=== PATIENT | female | born 2000 | race Caucasian/White ===

== ENCOUNTER 2024-03-27 19:41 | Emergency (ER) | payer SELFPAY ==
--- OUTSIDE RECORDS SUMMARY | 2024-03-27 19:45 | XMS REPORT | Continuity of Care Document ---
Author Name Unknown Address [address] [facility] [address] [place] [address] [facility] thconnect Address [address] [facility] [address] [place] [address] Care Team Providers Care Library Helper Name Role Phone Zaida_Jelani Attending Clinician Unavailable RACHNA Attending Clinician Unavailable Goldie Copeland Attending Clinician [phone] L_Jelani Admitting Clinician Unavailable RACHNA Admitting Clinician Unavailable Payers Payer Name Policy Type Policy Number Effective Date Expirati on Date Source [place] [id number] 2022 00:00:00 2023 00:00:00 Problems Condition Name Condition Details Condition Category Status Onset Date Resolution Date Last Treatment Date Treating Clinician Comments Source Acute sinusitis Acute Sinusitis Problem Active 7-30 00:00: 00 [facility] COVID-19 Covid-19 Problem Active 2022-04 2-05 00:00: 00 [facility] Acute tonsilliti s Acute Tonsilliti s Problem Active 2022-04 1-02 00:00: 00 [facility] Elevated blood-pres sure reading without diagnosis of hypertensi on Elevated Blood-pres sure Reading without Diagnosis of Hypertensi on Problem Active 2022-04 0-13 00:00: 00 [facility] Streptococ pacheco sore throat Streptococ pacheco Sore Throat Problem Active 3-10 00:00: 00 [facility] Pain in throat Pain in Throat Problem Active 3-10 00:00: 00 [facility] Rhinitis Rhinitis Problem Active 3-10 00:00: 00 [facility] Diarrhea Diarrhea Problem Active 3-10 00:00: 00 [facility] Anxiety Anxiety Problem Active 06-18 00:00: 00 [facility] Depressive disorder Depressive Disorder Problem Active 06-18 00:00: 00 [facility] Endometrio sis (clinical) Endometrio sis (Clinical) Problem Active 06-18 00:00: 00 [facility] Allergies, Adverse Reactions, Alerts Allergy Name Allergy Type Status Severity Reaction(s) Onset Date Inactive Date Treating Clinician Comments Source Amoxicil regina Allergy to substanc e Active [facility] Social History Smoking Status Start Date Stop Date Source Never Smoker [facility] Medications Ordered Medication Name Filled Medication Name Start Date Stop Date Current Medication? Ordering Clinician Indication Dosage Frequency Signature (SIG) Comments Components Source doxycycline hyclate 100 mg capsule Take 1 capsule twice a day by oral route for 7 days. doxycycline hyclate 100 mg capsule Take 1 capsule twice a day by oral route for 7 days. No 1capsul e(s) BID doxycyclin e hyclate 100 mg capsule Take 1 capsule twice a day by oral route for 7 days. [facility] fluticasone propionate 50 mcg/actuati on nasal spray,suspe nsion 1 spray to each nostril twice daily as needed for nasal congestion. fluticasone propionate 50 mcg/actuati on nasal spray,suspe nsion 1 spray to each nostril twice daily as needed for nasal congestion. No fluticason e propionate 50 mcg/actuat ion nasal spray,susp ension 1 spray to each nostril twice daily as needed for nasal congestion . [facility] Immunizations Ordered Immunization Name Filled Immunization Name Date Status Comments Source COVID-19, mRNA, LNP-S, PF, 100 mcg/0.5 mL dose (Moderna) COVID-19, mRNA, LNP-S, PF, 100 mcg/0.5 mL dose (Moderna) Unknown Completed [facility] Vital Signs Vital Name Observation Time Observation Value Comments S ource BP Diastolic 2024-02-22 00:00:00 94 mm[Hg] [facility] BP Systolic 2024-02-22 00:00:00 152 mm[Hg] [facility] Height 2024-02-22 00:00:00 63 [in_i] [facility] BMI (Body Mass Index) 2024-02-22 00:00:00 43.7 kg/m2 [facility] Body Weight 2024-02-22 00:00:00 3945.6 [oz_av] [facility] Height 2023-12-28 00:00:00 63 [in_i] [facility] BMI (Body Mass Index) 2023-12-28 00:00:00 44.9 kg/m2 [facility] Body Weight 2023-12-28 00:00:00 4054.4 [oz_av] [facility] BP Diastolic 2023-12-28 00:00:00 83 mm[Hg] [facility] BP Systolic 2023-12-28 00:00:00 139 mm[Hg] [facility] BMI (Body Mass Index) 2023-11-21 00:00:00 45.5 kg/m2 [facility] Body Weight 2023-11-21 00:00:00 4112 [oz_av] [facility] Height 2023-11-21 00:00:00 63 [in_i] [facility] BP Diastolic 2023-11-21 00:00:00 96 mm[Hg] [facility] BP Systolic 2023-11-21 00:00:00 149 mm[Hg] [facility] BP Systolic 2023-06-01 00:00:00 127 mm[Hg] [facility] Height 2023-06-01 00:00:00 63 [in_i] [facility] BMI (Body Mass Index) 2023-06-01 00:00:00 43.1 kg/m2 [facility] BP Diastolic 2023-06-01 00:00:00 81 mm[Hg] [facility] Body Weight 2023-06-01 00:00:00 3891.2 [oz_av] [facility] BMI (Body Mass Index) 2023-04-19 00:00:00 43.2 kg/m2 [facility] Body Weight 2023-04-19 00:00:00 3904 [oz_av] [facility] BP Diastolic 2023-04-19 00:00:00 92 mm[Hg] [facility] BP Systolic 2023-04-19 00:00:00 133 mm[Hg] [facility] Height 2023-04-19 00:00:00 63 [in_i] [facility] BP Diastolic 2023-03-28 00:00:00 91 mm[Hg] [facility] Body Weight 2023-03-28 00:00:00 3907.2 [oz_av] [facility] Height 2023-03-28 00:00:00 63 [in_i] [facility] BMI (Body Mass Index) 2023-03-28 00:00:00 43.3 kg/m2 [facility] BP Systolic 2023-03-28 00:00:00 137 mm[Hg] [facility] BP Diastolic 2023-02-23 00:00:00 87 mm[Hg] [facility] BMI (Body Mass Index) 2023-02-23 00:00:00 43.5 kg/m2 [facility] Height 2023-02-23 00:00:00 63 [in_i] [facility] BP Systolic 2023-02-23 00:00:00 138 mm[Hg] [facility] Body Weight 2023-02-23 00:00:00 3932.8 [oz_av] [facility] BP Diastolic 2023-02-03 00:00:00 91 mm[Hg] [facility] BMI (Body Mass Index) 2023-02-03 00:00:00 43.8 kg/m2 [facility] BP Systolic 2023-02-03 00:00:00 142 mm[Hg] [facility] Body Weight 2023-02-03 00:00:00 3955.2 [oz_av] [facility] 2023-02-03 00:00:00 63 [in_i] [facility] BP Systolic 2022-11-25 00:00:00 146 mm[Hg] [facility] Body Weight 2022-11-25 00:00:00 3913.6 [oz_av] [facility] BP Diastolic 2022-11-25 00:00:00 99 mm[Hg] [facility] Height 2022-11-25 00:00:00 63 [in_i] [facility] BMI (Body Mass Index) 2022-11-25 00:00:00 43.3 kg/m2 [facility] BP Diastolic 2022-07-01 00:00:00 93 mm[Hg] [facility] Height 2022-07-01 00:00:00 63 [in_i] [facility] BMI (Body Mass Index) 2022-07-01 00:00:00 43 kg/m2 [facility] BP Systolic 2022-07-01 00:00:00 137 mm[Hg] [facility] Body Weight 2022-07-01 00:00:00 3888 [oz_av] [facility] BP Diastolic 2021-06-18 00:00:00 89 mm[Hg] [facility] Height 2021-06-18 00:00:00 63 [in_i] [facility] BMI (Body Mass Index) 2021-06-18 00:00:00 42.9 kg/m2 [facility] BP Systolic 2021-06-18 00:00:00 136 mm[Hg] [facility] Body Weight 2021-06-18 00:00:00 3872 [oz_av] [facility] Procedures Procedure Date / Time Performed Performing Clinicia n Source XR, lumbosacral spine, 2 or 3 view 2023-06-01 00:00:00 [facility] XR, shoulder, 2 or more view 2023-02-03 00:00:00 [facility] XR, neck, soft tissue 2022-11-25 00:00:00 [facility] Encounters Start Date/Time End Date/Time Encounter Type Admission Type Attending [facility] Care Facility Care Department Encounter ID Source 2024-02-22 00:00:00 2024-02-22 00:00:00 Amaya Palomares APRN, MSN, [facility]-: [address], [address], [place] [address] , Ph. [facility] [address] [facility] 2023-12-28 00:00:00 2023-12-28 00:00:00 Amaya Palomares APRN, MSN, [facility]-: [address], [address], [place] [address] , Ph. [facility] 0905 [facility] 2023-11-21 00:00:00 2023-11-21 00:00:00 Tayler Riggs APRN-SNUFF CONTAINER INSPECTOR-B C: [address], [address], [place] [address] , Ph. [facility] 0730 [facility] 2023-06-23 00:00:00 2023-06-23 00:00:00 Outpatient [facility] [id number] [facility] 2023-06-01 00:00:00 2023-06-01 00:00:00 Outpatient L[facility] [id number] [facility] 2023-06-01 00:00:00 2023-06-01 00:00:00 Amaya Palomares APRN, MSN, [facility]-BC: [address], [address], [place] [address] , Ph. [facility] [id number] [facility] 2023-05-30 00:00:00 2023-05-30 00:00:00 Outpatient L[facility] [id number] [facility] 2023 00:00:00 2023 00:00:00 Outpatient [facility] [id number] [facility] 2023-04-19 00:00:00 2023-04-19 00:00:00 Amaya Palomares APRN, MSN, SNUFF CONTAINER INSPECTOR-BC: [address] [place] [address], [address], [place] [address] , Ph. [facility] [id number] [facility] 2023-04-13 00:00:00 2023-04-13 00:00:00 Outpatient L[facility]ena [facility] [id number] [facility] 2023-03-28 00:00:00 2023-03-28 00:00:00 Tayler Riggs APRN-SNUFF CONTAINER INSPECTOR-B C: [address] [place] [address], [address] [place] [address] , Ph. [facility] [id number] [facility] 2023-03-11 00:00:00 2023-03-11 00:00:00 Outpatient L[facility]ena [facility] [id number] [facility] 2023-03-09 00:00:00 2023-03-09 00:00:00 Outpatient L[facility]ena [facility] [id number] [facility] 2023-02-23 00:00:00 2023-02-23 00:00:00 Tayler Riggs APRN-SNUFF CONTAINER INSPECTOR-B C: [address] [facility], [address] [place] [phone] , Ph. [facility] [id number] [facility] 2023-02-21 00:00:00 2023-02-21 00:00:00 Outpatient L[facility] [id number] [facility] 2023-02-21 00:00:00 2023-02-21 00:00:00 Outpatient L[facility] [id number] [facility] 2023-02-03 00:00:00 2023-02-03 00:00:00 Outpatient L[facility]ena [facility] [id number] [facility] 2023-02-03 00:00:00 2023-02-03 00:00:00 Amaya Palomares APRN, MSN, [facility]-: [address] [place] [address], [address] [address] , Ph. [facility] [id number] [facility] 2023-01-20 00:00:00 2023-01-20 00:00:00 Outpatient L[facility] [id number] [facility] 2022-12-16 00:00:00 2022-12-16 00:00:00 Outpatient L[facility] [id number] [facility] 2022-11-25 00:00:00 2022-11-25 00:00:00 Outpatient L[facility] [id number] [facility] 2022-11-25 00:00:00 2022-11-25 00:00:00 Amaya Palomares APRN, MSN, SNUFF CONTAINER INSPECTOR-BC: [address] [place] [address], [address] [address] , Ph. [facility] [id number] [facility] 2022-10-28 00:00:00 2022-10-28 00:00:00 Outpatient L[facility]ena [facility] [id number] [facility] 2022-10-28 00:00:00 2022-10-28 00:00:00 Outpatient L[facility]ena [facility] [id number] [facility] 2022-09-23 00:00:00 2022-09-23 00:00:00 Outpatient L[facility]ena [facility] [id number] [facility] 2022-08-19 00:00:00 2022-08-19 00:00:00 Outpatient L[facility]ena [facility] [id number] [facility] 2022-07-15 00:00:00 2022-07-15 00:00:00 Outpatient L[facility]ena [facility] [id number] [facility] 2022-07-01 00:00:00 2022-07-01 00:00:00 Outpatient L[facility]ena [facility] [id number] [facility] 2022-07-01 00:00:00 2022-07-01 00:00:00 Outpatient L[facility]ena [facility] [id number] [facility] 2022-07-01 00:00:00 2022-07-01 00:00:00 Amaya Palomares APRN, MSN, [facility]-: [address] [place] [address], [address] [address] , Ph. [facility] [id number] [facility] 2022-06-30 00:00:00 2022-06-30 00:00:00 Outpatient L[facility]ena [facility] [id number] [facility] 2021-06-18 01:10:00 2021-06-18 01:10:00 Outpatient WATERS_S [facility] [id number] [facility] 2021-06-18 00:00:00 2021-06-18 00:00:00 Outpatient Goldie Copeland [facility] [id number] 2021-06-18 00:00:00 2021-06-18 00:00:00 Goldie Copeland BODY SERVICE TEAM MEMBER-TARGET SETTER-C: [address], [address], [place] [address] , Ph. [facility] [id number] [facility] 2021-06-15 04:23:00 2021-06-15 04:23:00 Outpatient WATERS_S [facility] [id number] [facility] Results Test Description Test Time Test Comments Results Result Co mments Source [facility] Ag [Presence] in Respiratory system specimen by Rapid [id number] 15:21:00* Test Item Value Reference Range Interpretation Comme nts SARS CoV 2 (test code = SARS CoV 2) negative [facility]
[2024-03-27] MEDS ORDERED: IBUPROFEN 200 MG TAB PO ONE (20:04)
[2024-03-27 20:43] LABS: SARS-CoV-2 Antigen CONTROL BLUE LINE VIS/BG OK
[2024-03-27 20:44] LABS: SARS-CoV-2 Antigen Rapid Res Positive (Negative)
--- NOTE | 2024-03-27 21:09 | EDPHYS ---
Physician Documentation [facility] Name: Lorna Gomez Age: 23 yrs Sex: Female : 2000 Arrival Date: 03/27/2024 Time: 19:41 Bed 6 Private MD: ED Physician Elier Alicea HPI: 03/27 19:54 This 23 yrs old Female presents to ER via Unassigned with complaints of Cough, kb Congestion, Fever, Headache. 19:54 Pt is a 23 year old female who presents for cough, congestion, fever, and headache that kb started yesterday. 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 Denies vomiting, diarrhea. Significant other just started having same symptoms. . PEDODONTIST: 20:00 LMP 02/2024, unknown lg3 Historical: - Allergies: 20:00 Amoxicillin; lg3 - Home Meds: 20:00 None [Active]; lg3 - PMHx: 20:00 None; lg3 - PSHx: 20:00 None; lg3 - Immunization history:: Adult Immunizations up to date. - Infectious Disease History:: Denies. - Social history:: Smoking status: Reported history of juuling and/or vaping. Patient/guardian denies using alcohol, street drugs. ROS: 19:55 Constitutional: As per HPI kb Exam: 19:55 Constitutional: This is a well developed, well nourished patient who is awake, alert, kb and in no acute distress. Head/Face: Normocephalic, atraumatic. ENT: Moist Mucous membranes Cardiovascular: Regular rate Respiratory: Respirations even and unlabored. No increased work of breathing. Talking in full sentences Skin: Warm, dry with normal turgor. Normal color. MS/ Extremity: Pulses equal, no cyanosis. Neurovascular intact. Full, normal range of motion. Neuro: Awake and alert, GCS 15, oriented to person, place, time, and situation. Vital Signs: 19:57 BP 133 / 79; Pulse 134; Resp 15 S; Temp 101.9(O); Pulse Ox 97% on R/A; Weight 113.4 kg lg3 (R); Height 5 ft. 3 in. (R); 20:43 BP 148 / 83; Pulse 112; Resp 20 S; Temp 103.1; Pulse Ox 97% on R/A; ay 21:12 BP 132 / 63; Pulse 115; Resp 18; Temp 101.1(O); Pulse Ox 98% on R/A; ha1 21:31 BP 132 / 65; Pulse 102; Resp 20 S; Temp 100.1(T); Pulse Ox 99% on R/A; ha1 19:57 Body Mass Index 44.29 (113.40 kg, 160.02 cm) lg3 [place] Coma Score: 20:43 Eye Response: spontaneous(4). Motor Response: obeys commands(6). Verbal Response: ay oriented(5). Total: 15. MDM: 19:46 Medical Screening Exam initiated kb 21:08 Differential Diagnosis: Other flu, covid, strep, uri. Data reviewed: vital signs, kb nurses notes. I considered the following discharge prescriptions or medication management in the emergency department I discussed and recommended Over The Counter medications, Antibiotics: At this time antibiotics are not recommended, Antivirals: At this time, antivirals are not recommended. Historians other than the Patient: Spouse/Significant Other: significant other. Counseling: I had a detailed discussion with the patient and/or guardian regarding the historical points, exam findings, and any diagnostic results supporting the discharge/admit diagnosis, lab results, the need for outpatient follow up, a family practitioner, to return to the emergency department if symptoms worsen or persist or if there are any questions or concerns that arise at home. 03/27 19:55 Order name: Flu; Complete Time: 20:55 kb 03/27 19:55 Order name: SARS-COV-2 Antigen Rapid; Complete Time: 20:55 kb 03/27 19:55 Order name: Strep; Complete Time: 20:55 kb 03/27 19:55 Order name: RSV; Complete Time: 20:55 kb 03/27 20:47 Order name: Throat Culture EDMS 03/27 21:08 Order name: Vital Signs; Complete Time: 21:12 kb Administered Medications: 20:09 Drug: Ibuprofen PO 600 mg PO once Route: PO; ay 20:29 Follow up: Response: No adverse reaction ay 21:32 Follow up: Response: No adverse reaction; Temperature is decreased ha1 21:05 Drug: Acetaminophen PO 1000 mg PO once Route: PO; ha1 21:32 Follow up: Response: No adverse reaction; Temperature is decreased ha1 Disposition Summary: 03/27/24 21:09 Discharge Ordered Notes: Location: Home kb Condition: Stable kb Diagnosis - SARS-associated coronavirus as the cause of diseases classified elsewhere kb - Influenza due to identified novel influenza A virus kb Followup: kb - With: Emergency Department - When: As needed - Reason: Worsening of condition Followup: kb - With: Private Physician - When: 2 - 3 days - Reason: Recheck today's complaints, Continuance of care, Re-evaluation by your physician Discharge Instructions: - Discharge Summary Sheet kb - Influenza, Adult, [id number] kb - COVID-19 kb - Viral Illness, Adult kb Forms: - Work release form kb - Medication Reconciliation Form kb - Antibiotic Education kb - Prescription Opioid Use kb - Patient Portal Instructions kb - Leadership Thank You Letter kb Signatures: Dispatcher [employer] EDMS Rachel Mejia, DENSITY CONTROL PUNCHER-C DENSITY CONTROL PUNCHER-Monse Castle RN RN lg3 Sadia Jaramillo, RN RN ha1 Edgar Sanchez RN RN ay Corrections: (The following items were deleted from the chart) 19:55 19:55 Influenza Screen (A \T\ B)+BA.LAB.BRZ ordered. EDMS EDMS 19:55 19:55 SARS-COV-2 Antigen Rapid+I.LAB.BRZ ordered. EDMS EDMS 19:55 19:55 Group A Streptococcus Rapid Sc+BA.LAB.BRZ ordered. EDMS EDMS 19:55 19:55 Respiratory Syncytial Virus Ag+BA.LAB.BRZ ordered. EDMS EDMS
--- NOTE | 2024-03-27 21:09 | ER ---
Nurse's Notes [facility] Name: Lorna Gomez Age: 23 yrs Sex: Female : 2000 Arrival Date: 03/27/2024 Time: 19:41 Bed 6 Private MD: Diagnosis: SARS-associated coronavirus as the cause of diseases classified elsewhere;Influenza due to identified novel influenza A virus Presentation: 03/27 19:57 Chief complaint: Patient states: cough, congestion, fever, headache since yesterday. lg3 Coronavirus screen: Client denies travel out of the [place] in the last 14 days. Client presents with at least one sign or symptom that may indicate coronavirus-19. Standard/surgical mask placed on the client. Ebola Screen: No symptoms or risks identified at this time. Initial Sepsis Screen: Does the patient meet any 2 criteria? Temp <36.0*C (96.8*F)) or > 38.3*C (100.9*F). HR > 90 bpm. Yes Does the patient have a suspected source of infection? No. Patient's initial sepsis screen is negative. Risk Assessment: Do you want to hurt yourself or someone else? Patient reports no desire to harm self or others. Onset of symptoms was March 26, 2024. 19:57 Method Of Arrival: Ambulatory lg3 19:57 Acuity: ORLIN 3 lg3 Triage Assessment: 20:00 General: Appears in no apparent distress. comfortable, Behavior is calm, cooperative, lg3 quiet. Pain: Complains of pain in head. EENT: No deficits noted. Reports nasal congestion nasal discharge. Neuro: No deficits noted. [place] Agitation-Sedation Scale (RASS): 0 - Alert and Calm Level of Consciousness is awake, alert, obeys commands, Oriented to person, place, time, situation. Cardiovascular: No deficits noted. Denies chest pain, shortness of breath, Capillary refill < 3 seconds Clubbing of nail beds is absent JVD is absent Patient's skin is warm and dry. Respiratory: No deficits noted. Reports cough that is pain with cough Airway is patent Respiratory effort is even, unlabored, Respiratory pattern is regular, symmetrical, Breath sounds are clear bilaterally. GI: No deficits noted. No signs and/or symptoms were reported involving the gastrointestinal system. : No signs and/or symptoms were reported regarding the genitourinary system. Derm: No deficits noted. No signs and/or symptoms reported regarding the dermatologic system. Skin is intact, is healthy with good turgor, Skin is dry, Skin is normal, Skin temperature is warm. Musculoskeletal: No deficits noted. No signs and/or symptoms reported regarding the musculoskeletal system. Circulation, motion, and sensation intact. Range of motion: intact in all extremities. ASSESSMENT RN: 20:00 LMP 02/2024, unknown lg3 Historical: - Allergies: 20:00 Amoxicillin; lg3 - Home Meds: 20:00 None [Active]; lg3 - PMHx: 20:00 None; lg3 - PSHx: 20:00 None; lg3 - Immunization history:: Adult Immunizations up to date. - Infectious Disease History:: Denies. - Social history:: Smoking status: Reported history of juuling and/or vaping. Patient/guardian denies using alcohol, street drugs. Screenin:43 [facility] ED Fall Risk Assessment (Adult) History of falling in the last 3 months, ay including since admission No falls in past 3 months (0 pts) Confusion or Disorientation No (0 pts) Intoxicated or Sedated No (0 pts) Impaired Gait No (0 pts) Mobility Assist Device Used No (0 pt) Altered Elimination No (0 pt) Score/Fall Risk Level 0 - 2 = Low Risk Oriented to surroundings, Maintained a safe environment, Educated pt \T\ family on fall prevention, incl call for assistance when getting out of bed. Abuse screen: Denies threats or abuse. Nutritional screening: No deficits noted. Tuberculosis screening: No symptoms or risk factors identified. Assessment: 20:30 General: Appears uncomfortable, Behavior is calm, cooperative. Pain: Complains of pain ay in head Pain currently is 9 out of 10 on a pain scale. 20:43 Neuro: Level of Consciousness is awake, alert, obeys commands, Oriented to person, ay place, time, situation, Speech is normal, Cardiovascular: Heart tones S1 S2 Capillary refill < 3 seconds Chest pain is denied. Respiratory: Airway is patent Respiratory effort is even, unlabored, Respiratory pattern is regular, symmetrical. GI: Abdomen is distended, obese, Bowel sounds present X 4 quads. Abd is soft and non tender X 4 quads. : No signs and/or symptoms were reported regarding the genitourinary system. EENT: Nares stuffy. Derm: No signs and/or symptoms reported regarding the dermatologic system. Musculoskeletal: No signs and/or symptoms reported regarding the musculoskeletal system. Vital Signs: 19:57 BP 133 / 79; Pulse 134; Resp 15 S; Temp 101.9(O); Pulse Ox 97% on R/A; Weight 113.4 kg lg3 (R); Height 5 ft. 3 in. (R); 20:43 BP 148 / 83; Pulse 112; Resp 20 S; Temp 103.1; Pulse Ox 97% on R/A; ay 21:12 BP 132 / 63; Pulse 115; Resp 18; Temp 101.1(O); Pulse Ox 98% on R/A; ha1 21:31 BP 132 / 65; Pulse 102; Resp 20 S; Temp 100.1(T); Pulse Ox 99% on R/A; ha1 19:57 Body Mass Index 44.29 (113.40 kg, 160.02 cm) lg3 Vitals: 20:43 Cardiac Rhythm Assessment Regular. ay Dana Coma Score: 20:43 Eye Response: spontaneous(4). Motor Response: obeys commands(6). Verbal Response: ay oriented(5). Total: 15. ED Course: 19:45 Patient arrived in ED. gm2 19:46 Rachel Mejia [facility]NP-C [facility]. kb 19:46 Elier Alicea MD is Attending Physician. kb 20:00 Triage completed. lg3 20:00 Arm band placed on right wrist. lg3 20:43 Patient has correct armband on for positive identification. Bed in low position. Call ay light in reach. Side rails up X2. Adult w/ patient. Provided Education on: Procedure Consent. 20:43 No provider procedures requiring assistance completed. ay 21:33 Patient did not have IV access during this emergency room visit. ha1 Administered Medications: 20:09 Drug: Ibuprofen PO 600 mg PO once Route: PO; ay 20:29 Follow up: Response: No adverse reaction ay 21:32 Follow up: Response: No adverse reaction; Temperature is decreased ha1 21:05 Drug: Acetaminophen PO 1000 mg PO once Route: PO; ha1 21:32 Follow up: Response: No adverse reaction; Temperature is decreased ha1 Medication: 20:43 VIS not applicable for this client. ay Outcome: 21:09 Discharge ordered by MD. kwon 21:33 Discharged to home ambulatory, with family, ha1 21:33 Condition: stable 21:33 Discharge instructions given to patient, family, Instructed on discharge instructions, follow up and referral plans. Demonstrated understanding of instructions, follow-up care, 21:33 Patient left the ED. ha1 Signatures: Rachel Mejia, FRICTION SAW OPERATOR-C FRICTION SAW OPERATOR-Terrance Young, RN RN jb4 Monse Branham RN RN lg3 Sadia Jaramillo RN RN ha1 Shanda Loya rv1 Justine Barnhart 2 Edgar Sanchez RN RN ay Corrections: (The following items were deleted from the chart) 21:32 21:12 BP 132 / 63; Pulse 115bpm; Resp 18bpm; Pulse Ox 98% RA; Temp 102.5F Oral; rv1 ha1 21:37 21:30 Reassessment: Patient and/or family updated on plan of care and expected jb4 duration. Pain level reassessed. Patient is alert, oriented x 3, equal unlabored respirations, skin warm/dry/pink. Patient states feeling better. Patient states symptoms have improved. ha1 21:38 21:30 Reassessment: Patient appears in no apparent distress at this time. Patient jb4 and/or family updated on plan of care and expected duration. Pain level reassessed. Patient is alert, oriented x 3, equal unlabored respirations, skin warm/dry/pink. jb4
[2024-03-27] MEDS ORDERED: ACETAMINOPHEN 500 MG TAB ONE (21:16)
[2024-03-28 04:46] VITALS: BP 132/65; TEMP 100.1; O2SAT 99
== END 2024-03-27 21:33 | disposition home or self-care (01) ==
LOC: ER 19:41
DX: U07.1 COVID-19 (principal); J10.1 Influenza due to other identified influenza virus with other respiratory manifestations
CPT/HCPCS: 36415; 87070; 87081; 87804; 87807; 87811; 99283